=== PATIENT | female | born 1950 | race Caucasian/White ===

== ENCOUNTER 2021-04-11 11:30 | Emergency (ER) | payer MEDICARE, MEDICAID, SELFPAY ==
--- NOTE | 2021-04-11 11:38 | ED.SKABFB ---
HPI - Skin/Abscess/Foreign Bdy General Chief complaint: Skin/Abscess/Foreign Body Stated complaint: Rash Time Seen by Provider: 04/11/21 11:38 Source: patient and RN notes reviewed History of Present Illness HPI narrative: Patient is 71-year-old female who presents the urgent care with complaints of rash to bilateral upper arms and the top of her left foot. Patient states that she noticed it yesterday. States that she is from out of town and has been staying at her son's house. States that it showed up after she had been sitting on the couch. Patient denies of any new detergent, lotions, creams. Denies of getting bit by anything. Denies of any fevers. States that she has been using hydrocortisone cream. No complaints. No acute distress noted. Patient aware of the plan of care. Some parts of this dictation were generated by voice recognition software and may contain typographical and/or grammatical inaccuracies. Related Data Home Medications Medication Instructions Recorded Confirmed hydrocodone-acetaminophen 7.5 tablet PO TID PRN 04/11/21 04/11/21 lisinopril 10 mg PO DAILY 04/11/21 04/11/21 pravastatin 10 mg PO DAILY 04/11/21 04/11/21 venlafaxine 300 mg PO DAILY 04/11/21 04/11/21 Allergies Allergy/AdvReac Type Severity Reaction Status Date / Time No Known Allergies Allergy Unverified 06/07/16 14:21 Review of Systems Review of Systems: CONSTITUTIONAL: Denies fever, chills, or sweats. EYES: Denies visual changes, redness, or discharge. ENT: Denies rhinorrhea, congestion, sore throat, or otalgia. CARDIOVASCULAR: Denies chest pain, palpitations, or edema. RESPIRATORY: Denies cough or dyspnea. GASTROINTESTINAL: Denies abdominal pain, nausea, vomiting, or diarrhea. GENITOURINARY: Denies dysuria or hematuria. SKIN: Reports of rash to the top of the left foot and bilateral upper arms MUSCULOSKELETAL: Denies back pain, joint pain, or myalgia. NEUROLOGIC: Denies headache, numbness, or weakness. All other systems reviewed are negative, except as documented in HPI. PMFSH Comments At the time of my signature, I reviewed and agree with the nursing past medical, surgical, social, and family history. There is no relevant family history pertinent to the patient complaint. Exam Narrative: GENERAL: This is a well-nourished, well-developed patient, in no apparent distress. HEAD: normocephalic, atraumatic. EYES: PERRL. Sclera clear/white. Vision is grossly intact. EARS: External ears normal NOSE: External nose normal with no obvious nasal discharge, nares without redness, no rhinorrhea. THROAT: Mucous membranes moist NECK: Neck supple CARDIOVASCULAR: Regular rate and rhythm without murmurs, gallops, or rubs. RESPIRATORY: Clear to auscultation. Breath sounds equal bilaterally. No wheezes, rales, or rhonchi. SKIN: Firm and warm a 7 x 7 area of erythema noted to bilateral upper arms, firm erythemic region to the dorsal aspect of the left foot NEURO: awake, alert, and oriented to person, place and time. There were no obvious focal neurologic abnormalities. EXTREMITIES: No clubbing, cyanosis, or edema. Course Vital Signs Vital signs: Vital Signs Temperature 96.8 F L 04/11/21 11:47 Pulse Rate 67 04/11/21 11:47 Respiratory Rate 16 04/11/21 11:47 Blood Pressure 142/67 H 04/11/21 11:47 Pulse Oximetry 98 04/11/21 11:47 Temperature 96.8 F L 04/11/21 11:47 Pulse Rate 67 04/11/21 11:47 Respiratory Rate 16 04/11/21 11:47 Blood Pressure 142/67 H 04/11/21 11:47 Pulse Oximetry 98 04/11/21 11:47 Reviewed-patient is informed that they may have pre-hypertension or hypertension based on a blood pressure reading in the department. I recommend the patient call the primary care provider listed on their discharge instructions or a physician of their choice this week to arrange follow-up for further evaluation of possible pre-hypertension or hypertension. MDM - Skin/Abscess/Foreign Bdy MDM Narrative Medical decisi
[2021-04-11 11:47] VITALS: BP 142/67; PULSE 67; RESP 16; TEMP 36; O2SAT 98
== END 2021-04-11 11:59 | disposition home or self-care (01) ==
PROVIDERS: Emergency Provider Nurse Practitioner Family
DX: L30.9 Dermatitis, unspecified (principal)
CPT/HCPCS: 99203; G0463

== ENCOUNTER 2023-08-04 18:47 | Emergency (ER) | payer MEDICARE, SELFPAY ==
[2023-08-04 18:56] VITALS: BP 134/64; PULSE 86; RESP 20; TEMP 36.7; O2SAT 100
--- NOTE | 2023-08-04 19:09 | ED.ANIMALBIT ---
HPI - Animal Bite General Chief Complaint: Animal Bite Stated Complaint: cat scratch on right forearm Time Seen by Provider: 08/04/23 19:03 Source: patient and RN notes reviewed Mode of arrival: ambulatory Limitations: no limitations History of Present Illness HPI narrative: Patient presents today complaining of a cat scratch or bite to the right forearm. States she inside her son's neighbor's house when the neighbor's cat jumped out and either bit or scratched her right forearm. Patient has 2 small puncture wounds to the right forearm. She is not up-to-date on her tetanus vaccine. Does not believe the cat is UTD on vaccines, but stays inside the home 100% of the time. Related Data Home Medications Medication Instructions Recorded Confirmed lisinopril 10 mg tablet 10 mg PO DAILY 04/11/21 08/04/23 venlafaxine 150 mg 300 mg PO DAILY 04/11/21 08/04/23 capsule,extended release 24 hr pravastatin 20 mg tablet 20 mg PO DAILY 08/04/23 08/04/23 Allergies Allergy/AdvReac Type Severity Reaction Status Date / Time No Known Allergies Allergy Verified 08/04/23 19:25 Review of Systems Review of Systems: CONSTITUTIONAL: Denies body aches, fever, chills, or sweats. EYES: Denies visual changes, redness, or discharge. ENT: Denies rhinorrhea, congestion, sore throat, or otalgia. CARDIOVASCULAR: Denies chest pain, palpitations, or edema. RESPIRATORY: Denies cough or dyspnea. GASTROINTESTINAL: Denies abdominal pain, nausea, vomiting, or diarrhea. GENITOURINARY: Denies dysuria or hematuria. SKIN: + right forearm injury MUSCULOSKELETAL: Denies back pain, joint pain, or myalgia. NEUROLOGIC: Denies headache, numbness, tingling, or weakness. PSYCH: Denies depression or anxiety. [facility] Past Medical History Medical History (Updated 08/04/23 @ 19:20 by Teodora Davis, [facility], ) High cholesterol Comments At time of signature, I have reviewed and agree with nursing past medical, surgical, social and family history unless otherwise noted. Please see nursing chart for further information. There is no relevant family history pertinent to the presenting complaint Exam Narrative: GENERAL: Well-appearing, well-nourished, and in no acute distress. HEAD: Normocephalic, atraumatic. EYES: EOMI. No redness or drainage. Conjunctivae normal. ENT: Mucous membranes pink and moist. NECK: Normal AROM. CHEST: No respiratory distress. EXTREMITIES: Right forearm: 2 tiny puncture wounds to the forearm with surrounding mild edema and moderate ecchymosis. SKIN: Warm, dry, no rash. Capillary refill normal. Normal skin turgor. NEURO: No focal deficits. Alert and oriented x3. Gait steady. PSYCH: Normal affect. No signs of depression or anxiety. Course Course Level of Care: Express Care Visit Vital Signs Vital signs: Vital Signs Temperature 98.0 F 08/04/23 18:56 Pulse Rate 86 08/04/23 18:56 Respiratory Rate 20 08/04/23 18:56 Blood Pressure 134/64 08/04/23 18:56 Pulse Oximetry 100 08/04/23 18:56 Oxygen Delivery Room Air 08/04/23 18:56 Temperature 98.0 F 08/04/23 18:56 Pulse Rate 86 08/04/23 18:56 Respiratory Rate 20 08/04/23 18:56 Blood Pressure 134/64 08/04/23 18:56 Pulse Oximetry 100 08/04/23 18:56 Oxygen Delivery Room Air 08/04/23 18:56 Reviewed MDM - Animal Bite MDM Narrative Medical decision making narrative: Move tetanus shot updated. Prescription for Augmentin sent to pharmacy. Anticipatory guidance given. Differential Diagnosis Differential diagnosis: Likely cat bite and other (Cat scratch) Critical Care Time Critical Care Time Critical Care Time: No Discharge Plan Discharge Clinical Impression: Cat bite of forearm Qualifiers: Encounter type: initial encounter Laterality: right Qualified Code(s): S51.851A - Open bite of right forearm, initial encounter Patient Disposition: Home, Self-Care Condition: Stable Instructions: Antibiotic Form, Animal Bit
[2023-08-04] MEDS: TETANUS,DIPHTHERIA,AC PERTUSSIS ADULT (0.5 ML) BOOSTRIX IM (19:12)
== END 2023-08-04 19:30 | disposition home or self-care (01) ==
PROVIDERS: Emergency Provider Nurse Practitioner
DX: S51.831A Puncture wound without foreign body of right forearm, initial encounter (principal); W55.01XA Bitten by cat, initial encounter; E78.00 Pure hypercholesterolemia, unspecified
CPT/HCPCS: 90471; 90715; 99213; G0463